=== PATIENT | male | born 1990 | race Caucasian/White ===

== ENCOUNTER 2021-08-28 08:59 | Outpatient (REF) | payer OTHER, SELFPAY ==
--- NOTE | ~2021-08-28 | XR_ITS ---
EXAMINATION: XR SKULL CLINICAL INFORMATION: Scar condition than fibrosis. COMPARISON: None TECHNIQUE: 4 views of the skull were obtained. FINDINGS: The paranasal sinuses are well-aerated. The bony sinus rousseau appear intact. The nasal bone and maxillofacial bones are unremarkable. The mastoid sinuses are well-aerated. Visualized calvarium appears unremarkable. The soft tissues are normal. XR/XR skull <4V IMPRESSION: Unremarkable sinus exam.
[2021-08-28 11:20] LABS: Appearance Urine CLEAR; Color Urine YELLOW; Glucose Urine UA NEG (NEG); Leukocyte Esterase Urine NEG (NEG); Nitrite Urine NEG (NEG); PH 6.5 (5.0-8.0); Specific Gravity - Urine <= 1.005 (1.005-1.025); Urine Blood NEG (NEG); Urine Ketones NEG (NEG); Urine Protein NEG (NEG-TRACE)
[2021-08-28 11:28] LABS: Alanine Aminotransferase 21 U/L (0-40); Albumin Level 4.3 g/dL (3.5-5.0); Alkaline Phosphatase 61 U/L (39-117); Anion Gap 10 (12-20); Aspartate Amino Transferase 21 U/L (5-37); Bilirubin Total 0.9 mg/dL (0.0-1.0); Blood Urea Nitrogen 12 mg/dL (9-16); Calcium 9.2 mg/dL (8.4-10.2); Carbon Dioxide 28 mmol/L (22-29); Chloride 107 mmol/L (96-108); Cholesterol 174 mg/dL; Estimated Glomerular Filt Rate > 60; Glucose Fasting 100 mg/dL (60-99); HDL Cholesterol 62 mg/dL; LDL Cholesterol Calculated 104 mg/dl; Potassium 4.5 mmol/L (3.3-5.1); Sodium 140 mmol/L (135-145); Total Protein 6.7 g/dL (6.5-8.0); Triglycerides 42 mg/dL
[2021-08-28 11:36] LABS: Creatinine Urine 44.29 mg/dL; Microalbumin Urine < 5.0 mg/L
[2021-08-28 11:50] LABS: TSH reflex Free T4 0.55 uIU/mL (0.32-4.0)
[2021-08-30 08:24] LABS: HBsAGNum1 0.23 S/CO (0.00-0.99); Hepatitis B Surface Antigen Negative (Negative)
[2021-08-30 08:28] LABS: HBS Num1 3.34 mIU/mL (0-7.99); HBc Num1 0.04 S/CO (0.00-0.79); HIV AB/AG Nonreactive (Nonreactive); HIV Num 1 0.08 S/CO (0.00-0.99); Hepatitis B Core Antibody Nonreactive (Nonreactive); ~HepC Num1 0.06 S/CO (0.00-0.79); ~Hepatitis B Surface Antibody NONREACTIVE (Nonreactive); ~Hepatitis C Antibody Nonreactive (Nonreactive)
[2021-08-30 08:36] LABS: Syphilis Screen Nonreactive (Nonreactive)
== END 2021-08-28 09:00 | disposition home or self-care (01) ==
LOC: HO.HMGCLDS 08:59
PROVIDERS: Visit Provider Family Medicine
DX: Z00.00 Encounter for general adult medical examination without abnormal findings (principal); L90.5 Scar conditions and fibrosis of skin; I10 Essential (primary) hypertension; Z11.3 Encounter for screening for infections with a predominantly sexual mode of transmission
CPT/HCPCS: 36415; 70250; 80053; 80061; 81003; 82043; 84443; 86704; 86706; 86780; 86803; 87340; 87389

== ENCOUNTER 2022-04-06 08:51 | Outpatient (REF) | payer OTHER, SELFPAY ==
[2022-04-06 11:23] LABS: Appearance Urine Clear; Color Urine Yellow; Glucose Urine UA Negative (Negative); Leukocyte Esterase Urine Small (1+) (Negative); Nitrite Urine Negative (Negative); Specific Gravity - Urine 1.025 (1.005-1.025); UMIC TRIGGER UA YES; Urine Blood Negative (Negative); Urine Ketones 40 mg/dL (Negative); Urine Protein Negative (Neg-Trace)
[2022-04-06 11:34] LABS: Bacteria Urine None Seen (None Seen); Hyaline Casts Urine 0-2 /LPF (0-2); RBC Urine 0-2 /HPF (0-2); Squamous Epithelial Cell Urine 0-2 /HPF (0-2)
[2022-04-06 11:46] LABS: Alanine Aminotransferase 22 U/L (0-40); Albumin Level 4.9 g/dL (3.5-5.0); Alkaline Phosphatase 64 U/L (39-117); Anion Gap 17 (12-20); Aspartate Amino Transferase 24 U/L (5-37); Bilirubin Total 2.6 mg/dL (0.0-1.0); Blood Urea Nitrogen 11 mg/dL (9-16); Calcium 9.9 mg/dL (8.4-10.2); Carbon Dioxide 25 mmol/L (22-29); Chloride 102 mmol/L (96-108); Estimated Glomerular Filt Rate > 60; Glucose Fasting 93 mg/dL (60-99); Potassium 4.6 mmol/L (3.3-5.1); Sodium 139 mmol/L (135-145); Total Protein 7.6 g/dL (6.5-8.0)
[2022-04-06 12:00] LABS: Microalbum/Creatinine Ratio Ur 3.3 ug/mg cr
== END 2022-04-06 08:52 | disposition home or self-care (01) ==
LOC: HO.WFDLDS 08:51
PROVIDERS: Visit Provider Family Medicine
DX: Z00.00 Encounter for general adult medical examination without abnormal findings (principal); I10 Essential (primary) hypertension; R73.01 Impaired fasting glucose
CPT/HCPCS: 36415; 80053; 81001; 82043

== ENCOUNTER 2023-07-05 08:21 | Outpatient (AMB) | payer OTHER, SELFPAY ==
[2023-07-05 08:30] VITALS: BP 102/64; PULSE 86; RESP 13; TEMP 36.5; O2SAT 99; BMI 21.7
--- NOTE | 2023-07-05 08:30 | A.OFFPC_ITS ---
Vital Signs 07/05/23 08:30 Height 6 ft Weight 160 lb 2 oz BMI 21.7 BP 102/64 Blood Pressure Location Rt brachial Position Sitting Respiration 13 Pulse 86 Pulse Source Pulse Oximeter Temp 97.7 F Temp Source Temporal Artery Scan Pulse Oximetry (%) 99 Oxygen Delivery Method Room Air Intake Visit Reasons: Physical exam Intake Note: Patient states that his shoulder has been bothering him lately. Patient would like to quit smoking and get into tele-therapy. [employer] Required: No Accompanied by: Self / Same As Patient Allergies No Known Allergies Allergy (Verified 07/05/23 08:52) Tobacco use date assessed: 07/05/23 Dental Screening Dental Screen Date: 07/05/23 Did you have a dental visit in the last 12 months?: Yes Did you have a dental problem in the last 6 months where you did not have access to dental care?: No Was dental information given to patient?: Patient has dentist HPI HPI Comments History of Present Illness Details 32-year-old male presents for an extende d physical exam His PCP is Dr. Marques. His last office visit was on 04/13/2022. He has not had blood work done in over a year He denies significant past medical history He currently smokes a pack of cigarettes daily and has been smoking for about 16 years. He he will like treatment for smoking cessation. He notes that Bupropion was not effective He notes that he has been more anxious since he purchased his house 3 years ago due stress to afford the house. He also reports seasonal depression during the winter months. He also notes that he was a binge drinking but quit drinking alcohol 3 months ago. No formal anxiety or depression diagnosis. He would like a referral to a therapist He notes that he is sexually active, in a monogamous relationship, and has no concerns for STDs [facility] Medical History (Updated 07/05/23 @ 09:10 by Dang Barrett CNP) No pertinent past medical history Surgical History (Updated 07/05/23 @ 08:38 by Aimee Yuen MA) No pertinent past surgical history Social History Housing: House Patient Tobacco Use Status: Current everyday Tobacco user Tobacco use type: Cigarette Cigarette Packs Per Day: 1 Cigarettes Per Day: 20 Years Smoked: 16 e-Cigarette/Vaping Use: Former Use Second Hand Smoke Exposure: No service: No Current occupational status: employed 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 1. Little interest or pleasure in doing things: several days 2. Feeling down, depressed, or hopeless: more than half the days 3. Trouble falling or staying asleep, or sleeping too much: not at all 4. Feeling tired or having little energy: several days 5. Poor appetite or overeating: several days 6. Feeling bad about yourself - or that you are a failure or have let yourself or your family down: several days 7. Trouble concentrating on things, such as reading the newspaper or watching television: several days 8. Moving or speaking so slowly that other people could have noticed. Or the opposite - being so fidgety or restless that you have been moving around a lot more than usual: several days 9. Thoughts that you would be better off or of hurting yourself in some way: not at all Total score: 8 Depression Screening Interpretation: Positive Depression Screening Follow-up: Community Mental Health Worker F/U Depression Screening Done: Yes 65326 - PHQ-9 Billing: Yes Source: Developed by Drs. Terry Montes, Sammi Phillips, Pablo Mari and colleagues, with an educational lacey from [employer]. Thrive Questionnaire Date Thrive assessed: 07/05/23 I am a: Patient What is your living situation today?: I have a steady place to live Within the past 12 months, did the food you bought not last and you didn't have the money to get more?: Never true Within the past 12 months, did you worry whether your food would run out before you got money to buy more?: Never true Do you have trouble paying for medicines?: No Do you have trouble getting transportation to medical appointments?: No Do you have trouble paying your heating and electricity bill?: No Do you have trouble taking care of your child, family member or friend?: No Do you have trouble with day-to-day activities such as bathing, preparing meals, shopping, managing finances, etc.?: No Are you currently unemployed and looking for a job?: No Are you interested in more education?: No Please select the resources that you would like help with: None Currently or been in a relationship where the following occur: no concerns reported AUDIT C Alcohol Use Questionnaire (AUDIT-C) 1. How often do you have a drink containing alcohol?: Never 3. How often do you have six or more drinks on one occasion?: Never Total Score: 0 JOSE-7 AMB Questionnaire JOSE-7 Date JOSE - 7 assessed: 07/05/23 Feeling nervous, anxious, or on edge: 1 = Several days Not being able to stop or control worryin = Several days Worrying too much about different things: 2 = More than half the days Trouble relaxin = Several days Being so restless that it is hard to sit still: 0 = Not at all Becoming easily annoyed or irritable: 2 = More than half the days Feeling afraid as if something awful might happen: 1 = Several days Total JOSE-7 score (0-4 normal; 5-9 mild; 10-14 moderate; 15-21 severe): 8 Source: Developed by Drs. Terry Montes, Sammi Phillips, Pablo Mari and colleagues, with an educational lacey from [employer]. JOSE-7 Assessment Billing JOSE-7 Assessment Tool: JOSE-7 Assessment 73891 Review of Systems Const Details: Denies chills, Denies fatigue, Denies fever(s), Denies headache(s) and Denies weakness HEENT Denies change in vision, Denies dizziness, Denies headache(s), Denies hearing lo ss, Denies nasal congestion, Denies sinus pain, Denies sinus pressure and Denies sore throat Card Denies chest pain, Denies lightheadedness, Denies dyspnea and Denies other (palpitations) Resp Denies cough, Denies dyspnea and Denies wheezing GI Denies abdominal pain, Denies melena, Denies hematochezia, Denies change in bowel habits, Denies dyspepsia and Denies nausea Denies hematuria and Denies dysuria Musc Denies abnormal gait, Denies myalgias, Denies arthralgias, Denies numbness and Denies tingling Skin/Breast Denies rash, Denies unusual bruising and Denies wounds Neuro Denies abnormal gait, Denies dizziness, Denies headache(s), Denies memory loss, Denies numbness, Denies Sensory deficit (Neuro), Denies tingling and Denies weakness Psych Reports anxiety, Reports depression and Denies memory loss Endo Denies cold intolerance, Denies fatigue, Denies heat intolerance, Denies polydipsia and Denies polyuria Candido/Lymph Denies easy bleeding and Denies easy bruising Aller/Immun Denies wheezing Physical exam (Primary Care) Vital Signs: Last Vital Signs Temp 97.7 F 07/05/23 08:30 Pulse 86 07/05/23 08:30 Resp 13 07/05/23 08:30 BP 102/64 07/05/23 08:30 Pulse Ox 99 07/05/23 08:30 Oxygen Delivery Method Room Air 07/05/23 08:30 BMI result Body Mass Index 21.7 Tobacco/Smoking Status: Tobacco use Status Tobacco use date assessed 07/05/23 07/05/23 08:43 Patient Tobacco Use Status Current everyday Tobacco 07/05/23 08:43 Tobacco use type Cigarette 07/05/23 08:43 e-Cigarette/Vaping Use Former Use 07/05/23 08:43 PHQ-9: PHQ-9 Score PHQ-9: Total score 8 07/05/23 08:46 Depression Screening Interpretation: Positive Depression Screening Follow-up: Community Mental Health Worker F/U Thrive Assessment: Date of Thrive Assessment Date Thrive assessed 07/05/23 07/05/23 08:43 Currently or been in a relationship where the following occur: no concerns repo rted Const Other: General: no acute distress, well developed, alert and awake Nutritional Appearance: well nourished Orientation/consciousness: patient oriented x3 HENMT Head: Yes normocephalic and Yes atraumatic Ears: hearing grossly normal bilaterally and TM's normal bilaterally General nose exam: Normal external nose present and Normal nares present Mouth: Normal oral and palatal mucosa present and moist mucous membranes Teeth and gingiva: dentition normal Throat: Yes oropharynx normal Eyes Pupils: Equal, round and reactive pupils present and Pupil accommodation reflex normal EOM: EOMs intact bilaterally Neck Neck: Yes normal visual inspection, Yes no lymphadenopathy and Yes trachea midline Thyroid: Thyroid normal Carotids: no bruits Lymphatic: no lymphadenopathy noted Chest Chest palpation & inspection: normal inspection of the chest Resp Effort & Inspection: normal respiratory effort Auscultation: clear to auscultation bilaterally Cardio Rate: regular rate Rhythm: regular rhythm Heart sounds: S1 normal heart sound present, S2 normal heart sound present, no gallops, no murmurs and no rubs Bruits: no abdominal aortic bruits and no carotid bruits GI Palpation (GI): No Abdominal aortic bruit present, Soft to palpation, nontender, No hepatosplenomegaly present and No Rebound tenderness present Auscultation: normal bowel sounds General: Yes no CVA tenderness Back/Spine/Pelvis Back: no CVA tenderness Cervical Spine: cervical ROM normal and No Cervical spine tenderness Thoracic/Lumbar Spine: thoraco-lumbar ROM normal, No pain with thoraco-lumbar ROM, No thoracic spinal tenderness and No lumbar spinal tenderness Skin General: warm and dry. Normal skin color. Normal skin turgor Lesions: no lesions Rashes: no rashes Trauma: no lacerations or abrasions Wounds: no wounds Nails: normal Neuro General: patient oriented x3, gait normal and CN's II-XI intact bilaterally Cranial nerves: Yes Equal, round and reactive pupils present Cognition (Neuro): normal cognition Gait exam (Neuro): Normal gait present Motor exam (neuro): 5/5 motor strength present throughout Sensory Exam: No Sensory deficit (Neuro) Deep tendon reflexes (DTR's): Right patellar reflex intensity grade: 2+ and Left patellar reflex intensity grade: 2+ Extrem General: Yes normal to inspection, No edema and No calf tenderness Psych Appearance: grossly normal Affect: normal affect Attitude: cooperative Thought process: Normal thought process present Assessment and Plan Assessment & Plan (1) Adult general medical exam: Code(s): Z00.00 - Encounter for general adult medical examination without abnormal findings Plan: No significant physical restriction or limitations noted Advised to get fasting blood work done and follow-up in 1 month Return sooner with symptoms or concerns Verbalized understanding and agreed with treatment plan (2) Anxiety and depression: Code(s): F41.9 - Anxiety disorder, unspecified; F32.A - Depression, unspecified Plan: 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 He also reports seasonal depression in the winter months PHQ-9 and JOSE-7 scores revealed mild depression and anxiety Deep breathing/relaxation techniques and routine exercise encouraged He met with the community navigator who would refer him to a therapist Follow-up with PCP in 1 month or return sooner with worsening or new symptoms Verbalized understanding and agreed with treatment plan (3) Smoker: Code(s): F17.200 - Nicotine dependence, unspecified, uncomplicated Plan: He reports smoking a pack of cigarettes daily and has been smoking for about 16 years Instructed on the health risks and complications of cigarette smoking Smoking cessation encouraged Nicotine patch ordered. Advised to use as prescribed and to quit or reduce cigarette smoking at treatment onset Follow-up with PCP in 1 month or return sooner with symptoms or concerns Verbalized understanding and agreed with treatment plan (4) Laboratory tests ordered as part of a complete physical exam (CPE): Code(s): Z00.00 - Encounter for general adult medical examination without abnormal findings Plan: Fasting labs ordered as part of a complete physical exam. Advised to fast for at least 10 hours before getting labs drawn. May drink water Verbalized understanding and agreed with treatment plan. Orders: Orders TSH reflex Free T4 Today Z00.00 - Encounter for general adult medical examination without abnormal findings UA CC w/rflx Micro + Cult Today Z00.00 - Encounter for general adult medical examination without abnormal findings Complete Blood Count Auto Diff Today Z00.00 - Encounter for general adult medical examination without abnormal findings Comprehensive [place]. Panel Fast Today Z00.00 - Encounter for general adult medical examination without abnormal findings Lipid Panel Today Z00.00 - Encounter for general adult medical examination without abnormal findings Medications: New nicotine Apply 21 mg patch q.d. x6 weeks, then apply 14 mg patch q.d. x2 weeks, then apply 7 mg patch q.d. x2 weeks. Stop cigarette use at treatment onset. 1 patch transdermal DAILY 70 ea 0RF 10 weeks Coding Level of Care Code Est Pt Prev Care 18-39y([id number]) Diagnoses Adult general medical exam Z00.00 Anxiety and depression F41.9; F32.A Smoker F17.200 Laboratory tests ordered as part of a complete physical exam (CPE) Z00.00 Additional Codes JOSE-7 Assessment Billing - JOSE-7 Assessment Tool: JOSE-7 Assessment [id number] ([id number])
== END 2023-07-05 09:13 | disposition home or self-care (01) ==
PROVIDERS: PCP Family Medicine; Visit Provider Nurse Practitioner Family
DX: Z00.00 Encounter for general adult medical examination without abnormal findings (principal); F41.9 Anxiety disorder, unspecified; F32.A Depression, unspecified; F17.210 Nicotine dependence, cigarettes, uncomplicated
CPT/HCPCS: 96127; 99395

== ENCOUNTER 2023-07-15 07:15 | Outpatient (REF) | payer OTHER, SELFPAY | END 2023-07-15 07:16 | disposition home or self-care (01) | LOC: HO.LAB 07:15 | PROVIDERS: PCP Family Medicine; Visit Provider Nurse Practitioner Family | DX: Z00.00 Encounter for general adult medical examination without abnormal findings (principal) | CPT/HCPCS: 36415; 80053; 80061; 81003; 84443; 85025 ==

== ENCOUNTER 2023-08-09 08:25 | Outpatient (AMB) | payer OTHER, SELFPAY ==
[2023-08-09 08:39] VITALS: BP 112/62; PULSE 78; O2SAT 97; BMI 21.0
--- NOTE | 2023-08-09 08:39 | MHC.PC.OV ---
Vital Signs 08/09/23 08:39 Height 6 ft Weight 155 lb BMI 21.0 BP 112/62 Blood Pressure Location Lt brachial Position Sitting Pulse 78 Pulse Source Pulse Oximeter Pulse Oximetry (%) 97 Oxygen Delivery Method Room Air Intake Visit Reasons: anxiety, depression,smoking cessation,labs Intake Note: Patient is here for follow up on labs, depression, anxiety, quitting smoking. Allergies No Known Allergies Allergy (Verified 08/09/23 08:41) Tobacco use date assessed: 08/09/23 HPI anxiety, depression,smoking cessation,labs HPI Details 32 y/o male presents to f/u anxiety/depression, smoking cessation and labs. Labs were drawn 07/15/23. Reviewed labs with pt. Elevated fasting glucose of 105. Elevated ALT of 55. Triglycerides 57. TC 207. LDL 130. HDL 66. Pt notes anxiety/depression has improved due to improved financial situations. 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 A1c today 08/09/23 5.3%. Pt has complaints of L shoulder pain. 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 1. Little interest or pleasure in doing things: not at all 2. Feeling down, depressed, or hopeless: not at all 3. Trouble falling or staying asleep, or sleeping too much: several days 4. Feeling tired or having little energy: several days 5. Poor appetite or overeating: several days 6. Feeling bad about yourself - or that you are a failure or have let yourself or your family down: not at all 7. Trouble concentrating on things, such as reading the newspaper or watching television: several days 8. Moving or speaking so slowly that other people could have noticed. Or the opposite - being so fidgety or restless that you have been moving around a lot more than usual: several days 9. Thoughts that you would be better off or of hurting yourself in some way: not at all Total score: 5 Depression Screening Interpretation: Negative Depression Screening Done: Yes 20572 - PHQ-9 Billing: Yes Source: Developed by Drs. Terry Montes, Sammi Phillips, Pablo Mari and colleagues, with an educational lacey from [employer]. Thrive Questionnaire Date Thrive assessed: 07/05/23 JOSE-7 AMB Questionnaire JOSE-7 Date JOSE - 7 assessed: 08/09/23 Feeling nervous, anxious, or on edge: 1 = Several days Not being able to stop or control worryin = Not at all Worrying too much about different things: 1 = Several days Trouble relaxin = Several days Being so restless that it is hard to sit still: 1 = Several days Becoming easily annoyed or irritable: 1 = Several days Feeling afraid as if something awful might happen: 0 = Not at all Total JOSE-7 score (0-4 normal; 5-9 mild; 10-14 moderate; 15-21 severe): 5 Source: Developed by Drs. Terry Montes, Sammi Phillips, Pablo Mrai and colleagues, with an educational lacey from [employer]. JOSE-7 Assessment Billing JOSE-7 Assessment Tool: JOSE-7 Assessment 21002 Physical exam (Primary Care) Vital Signs: Last Vital Signs Pulse 78 08/09/23 08:39 BP 112/62 08/09/23 08:39 Pulse Ox 97 08/09/23 08:39 Oxygen Delivery Method Room Air 08/09/23 08:39 BMI result Body Mass Index 21.0 Tobacco/Smoking Status: Tobacco use Status Tobacco use date assessed 08/09/23 08/09/23 08:41 Patient Tobacco Use Status Current everyday Tobacco 08/09/23 08:41 Tobacco use type Cigarette 08/09/23 08:41 e-Cigarette/Vaping Use Former Use 08/09/23 08:41 PHQ-9: PHQ-9 Score PHQ-9: Total score 5 08/09/23 08:55 Depression Screening Interpretation: Negative Thrive Assessment: Date of Thrive Assessment Date Thrive assessed 07/05/23 08/09/23 08:41 Extrem Other: L shoulder pain with range of motion, internal rotation and abduction Results AMB Hemoglobin A1c AMB Hemoglobin A1c 5.3 % Last Edit by Ashely Baldwin CMA on 08/09/23 09:19 Assessment and Plan Assessment & Plan (1) Anxiety and depression: Code(s): F41.9 - Anxiety disorder, unspecified; F32.A - Depression, unspecified Plan: Patient?was?having?some?difficulties?at?home?both?financially?and?in?his?relationship?with?his?. Finances?are?improved?and?his?mood?is?improved?as?well.??Relationship?is?a?little?better?but?he?would?like?to?have?therapist?for?himself. Will?ask?the?nurse?navigator?to?connect?him?with?a?therapist (2) Smoker: Code(s): F17.200 - Nicotine dependence, unspecified, uncomplicated Plan: Patient?is?working?on?quitting?smoking. 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 Continue?using?nicotine?patches?and?try?to?place?smoking?with?other?habits?that?are?less?detrimental. He?is?looking?forward?to?spring?time?when?he?is?no?longer?plowinging?streets. Will?continue?to?encourage?cessation (3) Elevated fasting glucose: Code(s): R73.01 - Impaired fasting glucose Plan: A1c?5.3%?is?still?in?normal?range?though?patient?has?had?a?couple?of?instances?of?elevated?fasting?blood?sugars. Likely?some?insulin?resistance Encouraged?a?diet?lower?in?starches?and?sugars (4) Elevated cholesterol: Code(s): E78.00 - Pure hypercholesterolemia, unspecified Plan: Mildly?elevated?LDL?cholesterol?though?his?HDL?ratios?are?good No?indication?for?medicine?at?this?time?but?I?did?encourage?a?diet?lower?in?saturated?fats?and?cholesterol (5) Elevated ALT measurement: Code(s): R74.01 - Elevation of levels of liver transaminase levels Plan: Mildly?elevated?ALT.??Patient?is?not?overweight?but?he?does?note?that?he?sometimes?has?episodes?of?excessive?drinking. He?has?stopped?drinking?altogether.??Encouraged?ongoing?cessation Will?recheck?liver?enzymes?and?if?still?elevated?or?higher,?will?check?an?ultrasound. (6) Shoulder pain: Code(s): M25.519 - Pain in unspecified shoulder Plan: Left?shoulder?pain Will?check?x-ray Start?physical?therapy Orders: Orders PT Evaluation and Treatment Today M25.519 - Pain in unspecified shoulder Comprehensive [place]. Panel Fast Today R74.01 - Elevation of levels of liver transaminase levels, Z00.00 - Encounter for general adult medical examination without abnormal findings Lipid Panel Today E78.00 - Pure hypercholesterolemia, unspecified, Z00.00 - Encounter for general adult medical examination without abnormal findings AMB Hemoglobin A1c Today Z13.9 - Encounter for screening, unspecified XR shoulder LT min 2V Today M25.519 - Pain in unspecified shoulder Referrals Nurse Navigator Referral F32.A - Depression, unspecified, F41.9 - Anxiety disorder, unspecified Coding Level of Care Code Est Pt Level 4 (40988) Diagnoses Anxiety and depression F41.9; F32.A Smoker F17.200 Elevated fasting glucose R73.01 Elevated cholesterol E78.00 Elevated ALT measurement R74.01 Shoulder pain M25.519 Additional Codes JOSE-7 Assessment Billing - JOSE-7 Assessment Tool: JOSE-7 Assessment [id number] ([id number])
== END 2023-08-09 09:20 | disposition home or self-care (01) ==
PROVIDERS: PCP Family Medicine; Visit Provider Family Medicine
DX: R73.01 Impaired fasting glucose (principal); F41.9 Anxiety disorder, unspecified; F32.A Depression, unspecified; F17.210 Nicotine dependence, cigarettes, uncomplicated; E78.00 Pure hypercholesterolemia, unspecified; R74.01 Elevation of levels of liver transaminase levels; M25.512 Pain in left shoulder
CPT/HCPCS: 83036; 99214

== ENCOUNTER 2023-09-23 07:29 | Outpatient (REF) | payer OTHER, SELFPAY ==
[2023-09-23 12:34] LABS: Appearance Urine Clear; Color Urine Yellow; Glucose Urine UA Negative (Negative); Leukocyte Esterase Urine Negative (Negative); Nitrite Urine Negative (Negative); PH 6.5 (5.0-9.0); Urine Blood Negative (Negative); Urine Ketones Negative (Negative); Urine Protein Negative (Neg-Trace)
[2023-09-23 12:46] LABS: Alanine Aminotransferase 21 U/L (0-40); Albumin Level 4.4 g/dL (3.5-5.0); Alkaline Phosphatase 69 U/L (39-117); Anion Gap 12 (12-20); Aspartate Amino Transferase 21 U/L (5-37); Bilirubin Total 0.8 mg/dL (0.0-1.0); Blood Urea Nitrogen 11 mg/dL (9-16); Calcium 9.7 mg/dL (8.4-10.2); Carbon Dioxide 28 mmol/L (22-29); Chloride 106 mmol/L (96-108); Cholesterol 197 mg/dL (<200); Estimated Glomerular Filt Rate > 60; Glucose Fasting 94 mg/dL (60-99); HDL Cholesterol 66 mg/dL (>40); LDL Cholesterol Calculated 120 mg/dL (<100); Potassium 4.8 mmol/L (3.3-5.1); Sodium 141 mmol/L (135-145); TSH reflex Free T4 0.84 uIU/mL (0.32-4.0); Total Protein 7.4 g/dL (6.5-8.0); Triglycerides 58 mg/dL (<150)
== END 2023-09-23 07:30 | disposition home or self-care (01) ==
LOC: HO.HMGCLDS 07:29
PROVIDERS: PCP Family Medicine; Visit Provider Family Medicine
DX: Z00.00 Encounter for general adult medical examination without abnormal findings (principal); Z13.6 Encounter for screening for cardiovascular disorders
CPT/HCPCS: 36415; 80053; 80061; 81003; 84443

== ENCOUNTER 2023-09-26 15:35 | Outpatient (AMB) | payer OTHER, SELFPAY ==
[2023-09-26 15:45] VITALS: BP 120/62; PULSE 102; O2SAT 97; BMI 20.7
--- NOTE | 2023-09-26 15:45 | MHC.PC.OV ---
Vital Signs 09/26/23 15:45 Height 6 ft Weight 153 lb BMI 20.7 BP 120/62 Blood Pressure Location Lt brachial Position Sitting Pulse 102 H Pulse Source Pulse Oximeter Pulse Oximetry (%) 97 Oxygen Delivery Method Room Air Intake Visit Reasons: Follow-up?lipids?and?elevated?liver?enzymes Intake Note: Patient is here to follow up on blood work for liver enzymes and lipids. Allergies No Known Allergies Allergy (Verified 09/26/23 15:46) Tobacco use date assessed: 09/26/23 Dental Screening Dental Screen Date: 09/26/23 Did you have a dental visit in the last 12 months?: Yes Did you have a dental problem in the last 6 months where you did not have access to dental care?: No Was dental information given to patient?: Patient has dentist HPI Follow-up?lipids?and?elevated?liver?enzymes HPI Details 32 y/o male presents to f/u lipids and elevated liver enzymes. Labs were drawn 09/23/23. Reviewed labs with pt. Triglycerides 58. TC 197. LDL 120. HDL 66. 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 Terry Montes, Sammi Phillips, Pablo Mari and colleagues, with an educational lacey from [employer]. Physical exam (Primary Care) Vital Signs: Last Vital Signs Pulse 102 H 09/26/23 15:45 BP 120/62 09/26/23 15:45 Pulse Ox 97 09/26/23 15:45 Oxygen Delivery Method Room Air 09/26/23 15:45 BMI result Body Mass Index 20.7 Tobacco/Smoking Status: Tobacco use Status Tobacco use date assessed 09/26/23 09/26/23 15:47 Patient Tobacco Use Status Current everyday Tobacco 09/26/23 15:47 Tobacco use type Cigarette 09/26/23 15:47 e-Cigarette/Vaping Use Former Use 09/26/23 15:47 Thrive Assessment: Date of Thrive Assessment Date Thrive assessed 07/05/23 09/26/23 15:47 Assessment and Plan Assessment & Plan (1) Elevated cholesterol: Code(s): E78.00 - Pure hypercholesterolemia, unspecified Plan: Lipids?all?in?normal?range HDL?ratios?are?ideal (2) Elevated ALT measurement: Code(s): R74.01 - Elevation of levels of liver transaminase levels Plan: Mildly?elevated?ALT?has?resolved Alcohol?in?moderation.??Hydrate?well (3) Shoulder pain: Code(s): M25.519 - Pain in unspecified shoulder Plan: Left?shoulder?pain?has?resolved Orders: Orders Comprehensive [place]. Panel Fast Today Z00.00 - Encounter for general adult medical examination without abnormal findings Lipid Panel Today Z00.00 - Encounter for general adult medical examination without abnormal findings Microalbumin, Random (w Creat) Today I10 - Essential (primary) hypertension TSH reflex Free T4 Today Z00.00 - Encounter for general adult medical examination without abnormal findings UA and rflx microscopic Today Z00.00 - Encounter for general adult medical examination without abnormal findings Coding Level of Care Code Est Pt Level 3 (99600) Diagnoses Elevated cholesterol E78.00 Elevated ALT measurement R74.01 Shoulder pain M25.519
== END 2023-09-26 16:22 | disposition home or self-care (01) ==
PROVIDERS: PCP Family Medicine; Visit Provider Family Medicine
DX: E78.00 Pure hypercholesterolemia, unspecified (principal); R74.01 Elevation of levels of liver transaminase levels; M25.519 Pain in unspecified shoulder
CPT/HCPCS: 99213

== ENCOUNTER 2023-11-18 09:11 | Outpatient (AMB) | payer OTHER, SELFPAY ==
[2023-11-18 09:27] VITALS: BP 112/68; PULSE 98; TEMP 36.8; O2SAT 97; BMI 19.9
--- NOTE | 2023-11-18 09:27 | AM.OFFWIN_ITS ---
Intake Vital Signs 11/18/23 09:27 Height 6 ft Weight 147 lb BMI 19.9 BP 112/68 Blood Pressure Location Rt brachial Position Sitting Pulse 98 Pulse Source Pulse Oximeter Temp 98.2 F Temp Source Oral Pulse Oximetry (%) 97 Oxygen Delivery Method Room Air Intake Visit Reasons: EST/sinus pressure (lobby masked) Intake Note: Pt is here today c/o sinus pressure x 2weeks Patient Tobacco Use Status: Current everyday Tobacco user Allergies No Known Allergies Allergy (Verified 11/18/23 09:38) Medication List - Last Reconciled 11[facility]18/23 [facility] No Known [facility] Meds [facility] Medical History No pertinent past medical history Surgical History No pertinent past surgical history Social History Housing: House Patient Tobacco Use Status: Current everyday Tobacco user Tobacco use type: Cigarette Cigarette Packs Per Day: 1 Cigarettes Per Day: 20 Years Smoked: 16 e-Cigarette/Vaping Use: Former Use Second Hand Smoke Exposure: No service: No Current occupational status: employed 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 Current occupational exposures/hazards: No Cognitive needs: No Hearing needs: No Vision needs: No Review of Systems Const All systems reviewed & are unremarkable except as noted in HPI and below Physical Exam Vital Signs: Last Vital Signs Temp 98.2 F 11/18/23 09:27 Pulse 98 11/18/23 09:27 BP 112/68 11/18/23 09:27 Pulse Ox 97 11/18/23 09:27 Oxygen Delivery Method Room Air 11/18/23 09:27 BMI result Body Mass Index 19.9 Const Other: Awake alert NAD Sclera and conjunctiva clear bilat TM intact bilat with some congestion Nares with thick mucoid drainage bilat, turbinates pale and edematous, maxillary sinus tenderness bilat MMM, pharynx WNL RRR LS CTAB Assessment & Plan Assessment & Plan (1) Acute bacterial sinusitis: Code(s): J01.90 - Acute sinusitis, unspecified; B96.89 - Other specified bacterial agents as the cause of diseases classified elsewhere Plan: . Medications: New amoxicillin-pot clavulanate 875-125 mg 1 tab PO BID 7 days 14 tabs 0RF Patient Instructions: What Is It? Sinuses are air-filled spaces behind the bones of the upper face: between the eyes and behind the forehead, nose and cheeks. The lining of the sinuses are made up of cells with tiny hairs on their surfaces called cilia. Oth er cells in the lining produce mucus. The mucus traps germs and pollutants and the cilia push the mucus out through narrow sinus openings into the nose. When the sinuses become inflamed or infected, the mucus thickens and clogs the openings to one or more sinuses. Fluid builds up inside the sinuses causing increased pressure. Also bacteria can become trapped, multiply and infect the lining. This is sinusitis. Prevention There are some measures you can take to decrease your risk of developing sinusitis. If you smoke cigarettes, you should quit. The smoke can irritate nasal passageways and increase the likelihood of infection. Nasal allergies can trigger sinus infections, too. By identifying the allergen (the substance causing the allergic reaction) and avoiding it, you can help prevent sinusitis. If you have congestion from a cold or allergies, the following may help to reduce the risk of developing sinusitis: Drink lots of water. This thins nasal secretions and keeps mucous membranes moist. Use steam to soothe nasal passages. Breathe deeply while standing in a hot shower, or inhale the vapor from a basin filled with hot water while holding a towel over your head. Avoid blowing your nose with great force, which can push bacteria into the sinuses. Some doctors advise periodic home nasal washings to clear secretions. This may help prevent, and also treat, sinus infections. Treatment Many sinus infections improve without treatment. However, several medications may speed recovery and reduce the chance that an infection will become chronic. Decongestants - Congestion often triggers sinus infections, and decongestants can open the sinuses and allow them to drain. Several are available: Pseudoephedrine (Sudafed) is available without prescription, alone or in combination with other medications in multi-symptom cold and sinus remedies. Pseudoephedrine can cause insomnia, racing pulse and jitteriness. Do not use if you have high blood pressure or a heart condition. Phenylephrine (such as Sudafed PE) is an alternative dltf-ioh-powxnxc oral decongestant. If you take products containing oral phenylephrine, check with the pharmacist to be certain there is no interaction with other medications you take. Oxymetazoline (Afrin Dristan and others) and phenylephrine (Donta-Synephrine and others) are found in nasal sprays. They are effective and may be less likely to cause the side effects seen with pseudoephedrine. However, using a nasal decongestant for more than three days can cause worse symptoms when you stop the medication. This is called the rebound effect. Antihistamines - These medications help to relieve the symptoms of nasal allergies that lead to inflammation and infections. However, some doctors advise against using antihistamines during a sinus infe ction because they can cause excessive drying and slow the drainage process. Zyoy-eoa-itjpgmo antihistamines include diphenhydramine (Benadryl and others), chlorpheniramine (Chlor-Trimeton and others) and loratadine (Claritin). Fexofenadine (Allison) and cetrizine (Zyrtec) are available by prescription. Nasal steroids - Anti-inflammatory sprays such as mometasone (Nasonex) and fluticasone (Flonase), both available by prescription, reduce swelling of nasal membranes. Like antihistamines, nasal steroids can be most useful for those who have nasal allergies. Nasal steroids tend to produce less drying than antihistamines. Unlike nasal decongestants, nasal steroids can be used for prolonged periods. Saline nasal sprays - These salt-water sprays are safe to use and can provide some relief by adding moisture to the nasal passages, thinning mucus secretions and helping to flush out any bacteria that may be present. Pain relievers - Acetaminophen (Tylenol), ibuprofen (Advil, Motrin and others) or naproxen (Aleve) can be taken sinus pain. Antibiotics - Your doctor may prescribe an antibiotic if he or she suspects that a bacterial infection is causing your sinusitis. If you start taking an antibiotic, complete the entire course so that the infection is completely killed off. Not all cases of sinusitis require antibiotic treatment: Talk with your doctor about whether an antibiotic is right for you. Keep in mind that antibiotics can cause side effects, such as allergic reactions, rash and diarrhea. In addition, overusing antibiotics eventually leads to the spread of bacteria that no longer can be killed by the most commonly prescribed antibiotics. When To Call A Professional Contact a doctor if you experience facial pain along with a headache and fever, cold symptoms that last longer than seven to 10 days, or persistent green discharge from the nose. If your symptoms don't improve within a week of beginning treatment, call your doctor. Call sooner if symptoms are getting worse. If you have repeated bouts of acute sinusitis, you may have allergies or another treatable cause of sinus congestion. Ask your doctor for advice. Coding Level of Care Code Est Pt Level 3 (37523) Diagnoses Acute bacterial sinusitis J01.90; B96.89
== END 2023-11-18 10:00 | disposition home or self-care (01) ==
PROVIDERS: PCP Family Medicine; Visit Provider Nurse Practitioner Family
DX: J01.90 Acute sinusitis, unspecified (principal); B96.89 Other specified bacterial agents as the cause of diseases classified elsewhere
CPT/HCPCS: 99051; 99213

== ENCOUNTER 2023-12-02 09:13 | Outpatient (AMB) | payer OTHER, SELFPAY ==
[2023-12-02 10:24] VITALS: BP 112/60; PULSE 79; TEMP 36.6; O2SAT 97; BMI 20.5
--- NOTE | 2023-12-02 10:24 | MHC.OFFWIV ---
Intake Vital Signs 12/02/23 10:24 Height 6 ft Weight 151 lb BMI 20.5 BP 112/60 Blood Pressure Location Lt brachial Position Sitting Pulse 79 Pulse Source Pulse Oximeter Temp 97.9 F Temp Source Oral Pulse Oximetry (%) 97 Oxygen Delivery Method Room Air Intake Visit Reasons: EP ?sinus infection Intake Note: Patient is here with sinus infection symptoms. Patient Tobacco Use Status: Current everyday Tobacco user Allergies No Known Allergies Allergy (Verified 12/02/23 10:26) Do you need a note to return to daycare/school/sports/work: No HPI EP ?sinus infection HPI Details Patient is a 33-year-old male comes to the walk-in clinic complaining of persistent sinusitis symptoms. He was diagnosed with acute bacterial sinusitis 2 weeks ago and was written for a course of Augmentin, which he reports completing. He states that he continues to have pressure to his cheek areas, mucoid production from his nose, and productive cough. No report of fever or chills, jaw pain, difficulty chewing, anorexia, nausea vomiting or diarrhea, dizziness or headache, weakness, malaise or myalgias, fast heart rate, chest pain or shortness of breath. Reviewed past medical history, and he continues to smoke cigarettes. 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 Current occupational exposures/hazards: No Cognitive needs: No Hearing needs: No Vision needs: No Review of Systems Const All systems reviewed & are unremarkable except as noted in HPI and below Physical Exam Vital Signs: Last Vital Signs Temp 97.9 F 12/02/23 10:24 Pulse 79 12/02/23 10:24 BP 112/60 12/02/23 10:24 Pulse Ox 97 12/02/23 10:24 Oxygen Delivery Method Room Air 12/02/23 10:24 BMI result Body Mass Index 20.5 Const General: cooperative, no acute distress, alert, awake, Physically active, ill appearing (Mildly), tired appearing and well groomed; No anxious, diaphoretic, intoxicated appearing or poor hygiene Nutritional Appearance: average body habitus Orientation/consciousness: patient oriented x3 Limitations: no limitations HEENT Head: Yes normal to inspection, Yes normocephalic and Yes atraumatic Ears: hearing grossly normal bilaterally, external ears normal, TM's normal bilaterally and EAC's normal General nose exam: Normal external nose present, Normal nares present, Abnormal mucous membranes and turbinates present and Nasal discharge present Face and sinus: Yes face symmetric, No erythema, No edema, No fluctuance and Yes sinus tenderness Mouth: Normal oral and palatal mucosa present, lip normal and tongue normal Throat: Yes posterior oropharynx normal, No peritonsillar mass, No postnasal drainage, No uvular edema and No cobblestoning Eyes General: appearance normal, both eyes and all related structures Neck Neck: Yes normal visual inspection, Yes no lymphadenopathy, Yes trachea midline, Yes supple and No anterior neck swelling Resp Effort & Inspection: normal respiratory effort Skin Other: Good color, warm and dry Neuro General: patient oriented x3 Psych Appearance: grossly normal Mental Status: mental status grossly normal Speech and movement: Normal speech and movement present Affect: normal affect Attitude: cooperative Thought process: Normal thought process present Insight: Good insight present (Psych) Judgement: Good judgement present (Psych) Assessment & Plan Assessment & Plan (1) Chronic sinusitis: Code(s): J32.9 - Chronic sinusitis, unspecified Qualifiers: Sinusitis location: ethmoidal Qualified Code(s): J32.2 - Chronic ethmoidal sinusitis Plan: Patient is a 33-year-old male with no underlying pertinent past medical history and comes to the walk-in clinic now with about a month sinus pressure and congestion symptoms after completing a course of Augmentin a few days ago. Pending flu COVID and RSV results, just in case this is than exacerbated condition due to new virus. I will write him for a course of prednisone which should help with the inflammation and pressure, and we will start him on azithromycin. If symptoms persist, he should follow up to be considered for CT scan at that point. He knows to go to emergency department for worrisome symptoms. Orders: Orders SARS-CoV2/FLU/RSV 12/02/23 R09.89 - Other specified symptoms and signs involving the circulatory and respiratory systems Medications: New azithromycin take 500 mg today (day 1), then 250 mg for 4 days (days 2-5) PO 6 tabs 0RF prednisone 40 mg (2 x 20 mg) PO DAILY 10 tabs 0RF 5 days Coding Level of Care Code Est Pt Level 4 (70260) Diagnoses Chronic ethmoidal sinusitis J32.2 Sinusitis location: ethmoidal
== END 2023-12-02 11:09 | disposition home or self-care (01) ==
PROVIDERS: PCP Family Medicine; Visit Provider Physician Assistant Medical
DX: J32.2 Chronic ethmoidal sinusitis (principal)
CPT/HCPCS: 99051; 99214

== ENCOUNTER 2023-12-02 11:32 | Outpatient (REF) | payer OTHER, SELFPAY ==
[2023-12-02 15:23] LABS: Influenza A PCR NEGATIVE (Negative); Influenza B PCR NEGATIVE (Negative); Resp Syncy Virus RNA Qual PCR NEGATIVE (Negative); SARS COV2 PCR INHOUSE NEGATIVE (Negative)
== END 2023-12-02 11:33 | disposition home or self-care (01) ==
LOC: HO.LAB 11:32
PROVIDERS: Visit Provider Physician Assistant Medical
DX: R09.89 Other specified symptoms and signs involving the circulatory and respiratory systems (principal); J06.9 Acute upper respiratory infection, unspecified
CPT/HCPCS: 0241U

== ENCOUNTER 2024-01-17 15:42 | Outpatient (AMB) | payer OTHER, SELFPAY ==
--- NOTE | 2024-01-17 15:44 | A.OFFPC_ITS ---
Vital Signs 01/17/24 15:48 Height 6 ft Weight 154 lb BMI 20.9 BP 110/52 L Blood Pressure Location Lt brachial Position Sitting Pulse 89 Pulse Source Pulse Oximeter Pulse Oximetry (%) 98 Oxygen Delivery Method Room Air Intake Visit Reasons: Smoking Quit Intake Note: Help quitting smoking Clinical Trial Coordinator Required: No Allergies No Known Allergies Allergy (Verified 01/17/24 15:47) Medication List - Last Reconciled 01/17/24 by Kaur Andujar PA-C varenicline (Chantix Starting Month Box) PO PER PKG DIR Tobacco use date assessed: 09/26/23 Dental Screening Dental Screen Date: 09/26/23 HPI Smoking Quit HPI Details Pt is a 33 y/o male who presents today to discuss smoking cessation. He states that he has been smoking for about 16 years on and off. He is tried Wellbutrin, patches, gum, hypnosis and Chantix. He states that the Chantix was the most effective and he would like to go back on this. He is currently smoking about a pack a day. He does have a history of anxiety and depression but states it is very well-controlled and not currently active. 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 Terry Montes, Sammi Phillips, Pablo Mari and colleagues, with an educational lacey from [employer]. Physical exam (Primary Care) Vital Signs: Last Vital Signs Pulse 89 01/17/24 15:48 BP 110/52 L 01/17/24 15:48 Pulse Ox 98 01/17/24 15:48 Oxygen Delivery Method Room Air 01/17/24 15:48 BMI result Body Mass Index 20.9 Tobacco/Smoking Status: Tobacco use Status Tobacco use date assessed 09/26/23 01/17/24 15:45 Patient Tobacco Use Status Current everyday Tobacco 01/17/24 15:45 Tobacco use type Cigarette 01/17/24 15:45 e-Cigarette/Vaping Use Former Use 01/17/24 15:45 Thrive Assessment: Date of Thrive Assessment Date Thrive assessed 07/05/23 01/17/24 15:45 HENMT Ears: hearing grossly normal bilaterally Neck Thyroid: Thyroid normal Lymphatic: no lymphadenopathy noted Resp Auscultation: clear to auscultation bilaterally Cardio Rate: regular rate Rhythm: regular rhythm Heart sounds: S1 normal heart sound present and S2 normal heart sound present Skin General skin exam: no rashes or lesions noted Assessment and Plan Assessment & Plan (1) Smoker: Code(s): F17.200 - Nicotine dependence, unspecified, uncomplicated Plan: We will start him on Chantix. We discussed risks and benefits and adverse effects of this medication including increased risk of anxiety, depression and abnormal dreams. He will let me know if he develops any adverse effects. He will contact me for continuation package. He will follow up if anything changes. Patient understands and agrees with the plan. Medications: New varenicline (Chantix Starting Month Box) PO PER PKG DIR 53 ea 0RF Coding Level of Care Code Est Pt Level 3 (68832) Diagnoses Smoker F17.200
[2024-01-17 15:48] VITALS: BP 110/52; PULSE 89; O2SAT 98; BMI 20.9
== END 2024-01-17 16:57 | disposition home or self-care (01) ==
PROVIDERS: PCP Family Medicine; Visit Provider Physician Assistant
DX: F17.200 Nicotine dependence, unspecified, uncomplicated (principal)
CPT/HCPCS: 99213

== ENCOUNTER 2024-03-05 11:42 | Outpatient (AMB) | payer OTHER, SELFPAY ==
--- NOTE | 2024-03-05 11:55 | A.OFFPC_ITS ---
Vital Signs 03/05/24 11:58 Height 6 ft Weight 161 lb 6 oz BMI 21.9 BP 108/59 L Blood Pressure Location Rt brachial Position Sitting Respiration 16 Pulse 98 Pulse Source Pulse Oximeter Temp 96.9 F Temp Source Tympanic Pulse Oximetry (%) 96 Oxygen Delivery Method Room Air Intake Visit Reasons: medications and possible anxiety meds needs Intake Note: f/u for anxiety and adha meds Allergies No Known Allergies Allergy (Verified 03/05/24 11:55) Medication List - Last Reconciled 03/05/24 by Paolo Marques MD No Known Home Meds Tobacco use date assessed: 09/26/23 Dental Screening Dental Screen Date: 09/26/23 HPI medications and possible anxiety meds needs HPI Details 33 y/o male presents today with complain ts of anxiety. Also has ongoing complaints of difficulty concentrating. Prior records has not showed any diagnosis of ADHD. Does not have a therapist but he has an appt. for his first visit in a couple months. Not on any meds for anxiety. HPI Comments History of Present Illness Details Documentation assistance for Paolo Marques MD, was provided by Niraj Villegas,? Tax[employer] on 03/05/2024 at 12:23 PM EST. I, Dr. Marques, have read, observed, and verified documentation. 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 Terry Montes, Sammi Phillips, Pablo Mari and colleagues, with an educational lacey from [employer]. Review of Systems Const Denies chills, Denies fatigue, Denies fever(s), Denies headache(s) and Denies weakness ENT Denies dizziness and Denies headache(s) Card Denies dyspnea Resp Denies cough, Denies dyspnea, Denies wheezing and Denies other (shortness of breath) Musc Denies numbness and Denies tingling Neuro Denies dizziness, Denies headache(s), Denies numbness, Denies tingling and De nies weakness Psych Reports anxiety and Denies depression Endo Denies fatigue Aller/Immun Denies wheezing Physical exam (Primary Care) Vital Signs: Last Vital Signs Temp 96.9 F 03/05/24 11:58 Pulse 98 03/05/24 11:58 Resp 16 03/05/24 11:58 BP 108/59 L 03/05/24 11:58 Pulse Ox 96 03/05/24 11:58 Oxygen Delivery Method Room Air 03/05/24 11:58 BMI result Body Mass Index 21.9 Tobacco/Smoking Status: Tobacco use Status Tobacco use date assessed 09/26/23 03/05/24 11:57 Patient Tobacco Use Status Current everyday Tobacco 03/05/24 11:57 Tobacco use type Cigarette 03/05/24 11:57 e-Cigarette/Vaping Use Former Use 03/05/24 11:57 Thrive Assessment: Date of Thrive Assessment Date Thrive assessed 07/05/23 03/05/24 11:57 Const General: well developed; No acute distress Nutritional Appearance: well nourished Orientation/consciousness: patient oriented x3 [facility] Head: Yes normocephalic and Yes atraumatic Eyes General: appearance normal, both eyes and all related structures Pupils: Equal, round and reactive pupils present EOM: EOMs intact bilaterally Resp Effort & Inspection: normal respiratory effort Neuro General: patient oriented x3 and gait normal Cranial nerves: Yes Equal, round and reactive pupils present Psych Affect: normal affect Assessment and Plan Assessment & Plan (1) Anxiety: Code(s): F41.9 - Anxiety disorder, unspecified Plan: He?can?trial?hydroxyzine?up?to?twice?a?day?as?needed?for?anxiety He?has?an?upcoming?appointment?with?a?therapist Will?follow-up?after?appointment?with?neuropsychiatry - see?below (2) Difficulty concentrating: Code(s): R41.840 - Attention and concentration deficit Plan: Ongoing?difficulty?with?concentration. Patient's?prior?notes?did?not?support?a?diagnosis?of?ADHD?so?I?am?referring?him? to?neuropsychiatry?to?rule?out?ADHD?or?make?recommendations?if?ruled?in. Orders: Referrals Neuropsychiatry Referral F41.9 - Anxiety disorder, unspecified, R41.840 - Attention and concentration deficit Medications: New hydroxyzine HCl 50 mg PO BID 30 days PRN 60 tabs 0RF itching Coding Level of Care Code Est Pt Level 3 (26250) Diagnoses Anxiety F41.9 Difficulty concentrating R41.840
[2024-03-05 11:58] VITALS: BP 108/59; PULSE 98; RESP 16; TEMP 36.1; O2SAT 96; BMI 21.9
== END 2024-03-05 14:00 | disposition home or self-care (01) ==
PROVIDERS: PCP Family Medicine; Visit Provider Family Medicine
DX: F41.9 Anxiety disorder, unspecified (principal); R41.840 Attention and concentration deficit
CPT/HCPCS: 99213

== ENCOUNTER 2024-11-05 08:08 | Outpatient (AMB) | payer OTHER, SELFPAY ==
--- NOTE | 2024-11-05 08:40 | AM.OFFWIN_ITS ---
Intake Vital Signs 11/05/24 08:41 Weight 157 lb BP 122/76 Blood Pressure Location Rt brachial Position Sitting Pulse 68 Pulse Source Pulse Oximeter Pulse Oximetry (%) 98 Oxygen Delivery Method Room Air Intake Visit Reasons: EP RT leg injury not WC Intake Note: Patient here for right leg injury that happened on 10/08 and is still swollen Patient Tobacco Use Status: Current everyday Tobacco user Allergies No Known Allergies Allergy (Verified 11/05/24 08:42) Do you need a note to return to daycare/school/sports/work: No HPI HPI Comments History of Present Illness Details History of Present Illness - The patient is a 33-year-old male pres enting with persistent swelling in his right leg secondary to a traumatic injury. - On October 08, the patient sustained an injury from a large rock falling on his leg, resulting in swelling that has persisted - Although the initial swelling obscured the area, some reduction has since occurred, revealing a discernible lump measuring approximately 7 cm by 9 cm - The patient reports the ability to wal k and does not experience pain at the knee or thigh - He has been unable to secure a follow- up appointment with his primary care physician due to logistical issues. Physical Exam General: Cooperative, healthy appearing, comfortable, no acute distress and well developed Orientation: Patient oriented x3 Limitations: No limitations Head: Normal to inspection Ears: Hearing grossly normal bilaterally Nose: Normal External nose present Face and sinus: Normal facial exam Eyes: Appearance normal, both eyes and all related structures Neck: Normal visual inspection and Yes full ROM Respiratory: Normal respiratory effort and able to speak in complete sentences. Skin: No rashes or lesions noted Neuro: Patient oriented x3 Extremities: fluctuant 7 cm x 9 cm lump on medial upper calf of RLE. Not TTP. Normal to inspection otherwise. 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 Current occupational exposures/hazards: No Cognitive needs: No Hearing needs: No Vision needs: No Review of Systems Const All systems reviewed & are unremarkable except as noted in HPI and below Physical Exam Vital Signs: Last Vital Signs Pulse 68 11/05/24 08:41 BP 122/76 11/05/24 08:41 Pulse Ox 98 11/05/24 08:41 Oxygen Delivery Method Room Air 11/05/24 08:41 Assessment & Plan Assessment & Plan (1) Traumatic hematoma of right lower leg: Code(s): S80.11XA - Contusion of right lower leg, initial encounter Qualifiers: Encounter type: initial encounter Qualified Code(s): S80.11XA - Contusion of right lower leg, initial encounter Plan: The persistent swelling in the right leg, following the described traumatic event, will be further evaluated through an ultrasound to determine the nature and extent of the hematoma, and to ensure there is no damage to adjacent structures. The ability to walk without pain serves as a positive indicator, justifying the choice of conservative management with heat and compression. I have contacted Dr. Marques to arrange for this diagnostic US, ensuring that the patient receives continuity of care and appropriate follow-up. Patient was informed and verbally consented to the use of an ambient scribe for clinic note documentation during this visit. Coding Level of Care Code Est Pt Level 3 (42239) Diagnoses Traumatic hematoma of right lower leg, initial encounter S80.11XA Encounter type: initial encounter
[2024-11-05 08:41] VITALS: BP 122/76; PULSE 68; O2SAT 98
== END 2024-11-05 09:08 | disposition home or self-care (01) ==
PROVIDERS: PCP Family Medicine; Visit Provider Physician Assistant
DX: S80.11XA Contusion of right lower leg, initial encounter (principal)

== ENCOUNTER → 2024-11-05 08:08 | Outpatient (BNVA) | payer OTHER, SELFPAY | PROVIDERS: PCP Family Medicine; Visit Provider Physician Assistant | DX: Z13.89 Encounter for screening for other disorder (principal) ==

== ENCOUNTER 2025-04-14 14:52 | Outpatient (AMB) | payer OTHER, SELFPAY ==
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
[2025-04-14 14:57] VITALS: BP 132/61; PULSE 92; RESP 16; TEMP 37; O2SAT 98; BMI 20.6
== END 2025-04-14 15:52 | disposition home or self-care (01) ==
LOC: HO.HMCFM 14:53
PROVIDERS: PCP Family Medicine; Visit Provider Nurse Practitioner Family
DX: F41.9 Anxiety disorder, unspecified (principal); F32.A Depression, unspecified; Z72.0 Tobacco use; Z00.00 Encounter for general adult medical examination without abnormal findings

== ENCOUNTER → 2025-04-14 14:52 | Outpatient (BNVA) | payer OTHER, SELFPAY | PROVIDERS: PCP Family Medicine; Visit Provider Nurse Practitioner Family | DX: Z00.00 Encounter for general adult medical examination without abnormal findings (principal); F32.A Depression, unspecified; F41.9 Anxiety disorder, unspecified; F17.210 Nicotine dependence, cigarettes, uncomplicated | CPT/HCPCS: 96127 ==

== ENCOUNTER 2025-04-15 07:31 | Outpatient (REF) | payer OTHER, SELFPAY ==
[2025-04-15 11:22] LABS: Appearance Urine Clear; Glucose Urine UA Negative (Negative); PH 5.5 (5.0-9.0); Specific Gravity - Urine 1.015 (1.005-1.025)
[2025-04-15 11:27] LABS: MANUAL DIFF FLAG NO
[2025-04-15 11:39] LABS: Hematocrit 41.4 % (42.0-52.0); Hemoglobin 13.9 g/dl (14.0-18.0); Imm Gran Abs Auto 0.01 X10*3/uL (0.00-0.03); Imm Gran Pct Auto 0.2 % (0.0-0.4); Lymphocytes Absolute Auto 1.6 X10*3/uL (1.2-4.9); Mean Corpuscular HGB Conc 33.6 g/dl (31.0-36.0); Mean Corpuscular Hemoglobin 31.0 pg (27.0-33.0); Mean Corpuscular Volume 92.2 fL (80.0-98.0); NRBC Abs Auto 0.000 X10*3/uL (0.0-0.012); NRBC Pct Auto 0.0 /100WBC (0.0-0.2); Platelet Count 256 X10*3/uL (160-400); Red Blood Count 4.49 X10*6/uL (4.60-5.80); White Blood Count 4.8 X10*3/uL (4.8-10.8)
[2025-04-15 12:07] LABS: Alanine Aminotransferase 19 U/L (0-40); Albumin Level 4.6 g/dL (3.5-5.0); Alkaline Phosphatase 43 U/L (39-117); Anion Gap 11 (12-20); Aspartate Amino Transferase 25 U/L (5-37); Blood Urea Nitrogen 10 mg/dL (9-16); Calcium 9.0 mg/dL (8.4-10.2); Carbon Dioxide 27 mmol/L (22-29); Chloride 108 mmol/L (96-108); Cholesterol 189 mg/dL (<200); Estimated Glomerular Filt Rate > 60; HDL Cholesterol 54 mg/dL (>40); Potassium 4.0 mmol/L (3.3-5.1); Sodium 142 mmol/L (135-145); Total Protein 6.8 g/dL (6.5-8.0); Triglycerides 62 mg/dL (<150)
[2025-04-15 12:26] LABS: Microalbum/Creatinine Ratio Ur 6.5 ug/mg cr (<30)
== END 2025-04-15 07:32 | disposition home or self-care (01) ==
LOC: HO.WFDLDS 07:31
PROVIDERS: Visit Provider Nurse Practitioner Family
DX: Z00.00 Encounter for general adult medical examination without abnormal findings (principal); Z13.21 Encounter for screening for nutritional disorder; Z13.29 Encounter for screening for other suspected endocrine disorder; Z13.6 Encounter for screening for cardiovascular disorders
CPT/HCPCS: 36415; 80053; 80061; 81003; 82043; 82306; 82570; 84443; 85025

== ENCOUNTER 2025-05-07 09:11 | Outpatient (AMB) | payer OTHER, SELFPAY ==
--- NOTE | 2025-05-07 09:17 | MHC.PC.OV ---
Vital Signs 05/07/25 09:22 Height 6 ft Weight 153 lb 4 oz BMI 20.8 BP 108/68 Blood Pressure Location Rt brachial Position Sitting Respiration 16 Pulse 62 Pulse Source Pulse Oximeter Temp 97.9 F Temp Source Temporal Artery Scan Pulse Oximetry (%) 98 Oxygen Delivery Method Room Air Intake Visit Reasons: Dr Cortez in 2 wks anxiety, depression, labs Intake Note: Geoffrey presents in the office today for a 2 week follow up to anxiety, depression and a review of his labs. Allergies No Known Allergies Allergy (Verified 05/07/25 09:20) Medication List - Last Reconciled 05/07/25 by Paolo Marques MD nicotine 1 patch transdermal DAILY 6 weeks Tobacco use date assessed: 05/07/25 Dental Screening Dental Screen Date: 05/07/25 Did you have a dental visit in the last 12 months?: No Did you have a dental problem in the last 6 months where you did not have access to dental care?: No Was dental information given to patient?: Patient has dentist HPI Dr Cortez in 2 wks anxiety, depression, labs HPI Details 34 y/o male presents to f/u anxiety/depression, labs. Labs drawn 04/15/25. Reviewed labs with pt. Mild anemia. Triglycerides 62. TC 189. LDL 123. HDL 54. Vitamin D 55.7. Pt notes he sees a psychiatrist today for his mood. 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 Current occupational exposures/hazards: No Cognitive needs: No Hearing needs: No Vision needs: No Questionnaire Thrive Questionnaire Date Thrive assessed: 04/12/25 I am a: Patient What is your living situation today?: I choose not to answer this question Within the past 12 months, did the food you bought not last and you didn't have the money to get more?: Never true Within the past 12 months, did you worry whether your food would run out before you got money to buy more?: Never true Do you have trouble paying for medicines?: No Do you have trouble getting transportation to medical appointments?: No Do you have trouble paying your heating and electricity bill?: No Do you have trouble taking care of your child, family member or friend?: No Do you have trouble with day-to-day activities such as bathing, preparing meals, shopping, managing finances, etc.?: No Are you currently unemployed and looking for a job?: No Are you interested in more education?: I choose not to answer this question Please select the resources that you would like help with: None Currently or been in a relationship where the following occur: No concerns reported THRIVE Score: 0 JOSE-7 AMB Questionnaire JOSE-7 Date JOSE - 7 assessed: 04/14/25 Source: Developed by Drs. Terry Montes, Sammi Phillips, Pablo Mari and colleagues, with an educational lacey from [employer]. Physical exam (Primary Care) Vital Signs: Last Vital Signs Temp 97.9 F 05/07/25 09:22 Pulse 62 05/07/25 09:22 Resp 16 05/07/25 09:22 BP 108/68 05/07/25 09:22 Pulse Ox 98 05/07/25 09:22 Oxygen Delivery Method Room Air 05/07/25 09:22 BMI result Body Mass Index 20.8 Tobacco/Smoking Status: Tobacco use Status Tobacco use date assessed 05/07/25 05/07/25 09:24 Patient Tobacco Use Status Former Tobacco user 05/07/25 09:24 Tobacco use type Cigarette 05/07/25 09:21 e-Cigarette/Vaping Use Former Use 05/07/25 09:21 Thrive Assessment: Date of Thrive Assessment Date Thrive assessed 04/12/25 05/07/25 09:19 Currently or been in a relationship where the following occur: No concerns reported Coding Level of Care Code Est Pt Level 3 (45851) Diagnoses Anxiety and depression F41.9; F32.A Elevated cholesterol E78.00 Mild anemia D64.9 Assessment & Plan Assessment & Plan (1) Anxiety and depression: Code(s): F41.9 - Anxiety disorder, unspecified; F32.A - Depression, unspecified Category: Medical Plan: Significant anxiety and depression Patient notes that symptoms have improved since discontinuing cannabis Patient already has a therapist and has an appointment with psychiatrist tomorrow. We can follow-up on how he is doing with new psychiatrist and his therapist at his next appointment. No medications were added today as he has his 1st appointment with Psychiatry tomorrow. (2) Elevated cholesterol: Code(s): E78.00 - Pure hypercholesterolemia, unspecified Category: Medical Plan: Consistently elevated LDL cholesterol Start atorvastatin Will recheck lipids prior to his next visit (3) Mild anemia: Code(s): D64.9 - Anemia, unspecified Category: Medical Plan: Will recheck labs prior to next visit Orders: Orders Complete Blood Count Auto Diff Today D64.9 - Anemia, unspecified, Z00.00 - Encounter for general adult medical examination without abnormal findings Lipid Panel Today E78.00 - Pure hypercholesterolemia, unspecified, Z00.00 - Encounter for general adult medical examination without abnormal findings UA CC w/rflx Micro + Cult Today Z00.00 - Encounter for general adult medical examination without abnormal findings Comprehensive [place]. Panel Fast Today E78.00 - Pure hypercholesterolemia, unspecified, Z00.00 - Encounter for general adult medical examination without abnormal findings Hemoglobin A1c Today R73.01 - Impaired fasting glucose TSH reflex Free T4 Today Z00.00 - Encounter for general adult medical examination without abnormal findings Microalbumin, Random (w Creat) Today I10 - Essential (primary) hypertension Medications: New atorvastatin (Lipitor) 10 mg PO BEDTIME 90 tabs 3RF 90 days
[2025-05-07 09:22] VITALS: BP 108/68; PULSE 62; RESP 16; TEMP 36.6; O2SAT 98; BMI 20.8
== END 2025-05-07 10:23 | disposition home or self-care (01) ==
LOC: HO.HMCFM 09:12
PROVIDERS: PCP Family Medicine; Visit Provider Family Medicine
DX: F41.9 Anxiety disorder, unspecified (principal); F32.A Depression, unspecified; E78.00 Pure hypercholesterolemia, unspecified; D64.9 Anemia, unspecified

== ENCOUNTER 2025-06-30 11:41 | Outpatient (AMB) | payer OTHER, SELFPAY ==
--- NOTE | 2025-06-30 11:45 | MHC.PC.OV ---
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: No Allergies No Known Allergies Allergy (Verified 06/30/25 12:16) Medication List - Last Reconciled 06/30/25 by Paolo Marques MD atorvastatin (Lipitor) 10 mg PO BEDTIME 90 days nicotine 1 patch transdermal DAILY 6 weeks Tobacco use date assessed: 06/30/25 Dental Screening Dental Screen Date: 06/30/25 Did you have a dental visit in the last 12 months?: No Did you have a dental problem in the last 6 months where you did not have access to dental care?: No Was dental information given to patient?: Patient has dentist HPI xray hand issues HPI Details 34 y/o male presents with complaints of hand pain, numbness. L hand pain at first metacarpal after hitting hand with a hammer swing. Has swelling, tenderness. 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 Current occupational exposures/hazards: No Cognitive needs: No Hearing needs: No Vision needs: No Questionnaire Thrive Questionnaire Date Thrive assessed: 04/12/25 I am a: Patient What is your living situation today?: I choose not to answer this question Within the past 12 months, did the food you bought not last and you didn't have the money to get more?: Never true Within the past 12 months, did you worry whether your food would run out before you got money to buy more?: Never true Do you have trouble paying for medicines?: No Do you have trouble getting transportation to medical appointments?: No Do you have trouble paying your heating and electricity bill?: No Do you have trouble taking care of your child, family member or friend?: No Do you have trouble with day-to-day activities such as bathing, preparing meals, shopping, managing finances, etc.?: No Are you currently unemployed and looking for a job?: No Are you interested in more education?: I choose not to answer this question Currently or been in a relationship where the following occur: No concerns reported THRIVE Score: 0 JOSE-7 AMB Questionnaire JOSE-7 Date JOSE - 7 assessed: 04/14/25 Source: Developed by Drs. Terry Montes, Sammi Phillips, Pablo Mari and colleagues, with an educational lacey from [employer]. Review of Systems Const Denies chills, Denies fatigue, Denies fever(s), Denies headache(s) and Denies weakness ENT Denies dizziness and Denies headache(s) Card Denies dyspnea Resp Denies cough, Denies dyspnea, Denies wheezing and Denies other (shortness of breath) Musc Denies numbness and Denies tingling Neuro Denies dizziness, Denies headache(s), Denies numbness, Denies tingling and Denies weakness Psych Denies anxiety and Denies depression Endo Denies fatigue Aller/Immun Denies wheezing Physical exam (Primary Care) Vital Signs: Last Vital Signs Temp 98.8 F 06/30/25 12:17 Pulse 65 06/30/25 12:17 Resp 16 06/30/25 12:17 BP 108/60 06/30/25 12:17 Pulse Ox 100 06/30/25 12:17 Oxygen Delivery Method Room Air 06/30/25 12:17 BMI result Body Mass Index 21.8 Tobacco/Smoking Status: Tobacco use Status Tobacco use date assessed 06/30/25 06/30/25 12:19 Patient Tobacco Use Status Former Tobacco user 06/30/25 11:46 Tobacco use type Cigarette 06/30/25 11:46 e-Cigarette/Vaping Use Former Use 06/30/25 11:46 Thrive Assessment: Date of Thrive Assessment Date Thrive assessed 04/12/25 06/30/25 11:46 Currently or been in a relationship where the following occur: No concerns reported Const General: well developed; No acute distress Nutritional Appearance: well nourished Orientation/consciousness: patient oriented x3 HENMT Head: Yes normocephalic and Yes atraumatic Eyes General: appearance normal, both eyes and all related structures Pupils: Equal, round and reactive pupils present EOM: EOMs intact bilaterally Resp Effort & Inspection: normal respiratory effort Neuro General: patient oriented x3 and gait normal Cranial nerves: Yes Equal, round and reactive pupils present Psych Affect: normal affect Coding Level of Care Code Est Pt Level 3 (64605) Diagnoses Hand pain M79.643 Assessment & Plan Assessment & Plan (1) Hand pain: Code(s): M79.643 - Pain in unspecified hand Category: Medical Plan: Left hand pain at 2nd metatarsal after hitting hand with stray hammer swing about 3 mos ago. Now has some swelling and tenderness. Also has some decreased sensation at distal fingertips of 2nd finger Will get x-ray He will follow-up in 1-2 weeks to review x-ray and determine next steps. Plan Had also wanted to follow-up on patient's lipids, fasting blood sugar and mild anemia. He has not gotten his blood drawn yet but will do so when [place] [facility] [place] Orders: Orders XR hand LT min 3V Today M79.643 - Pain in unspecified hand
[2025-06-30 12:17] VITALS: BP 108/60; PULSE 65; RESP 16; TEMP 37.1; O2SAT 100; BMI 21.8
== END 2025-06-30 12:50 | disposition home or self-care (01) ==
LOC: HO.HMCFM 11:42
PROVIDERS: PCP Family Medicine; Visit Provider Family Medicine
DX: M79.643 Pain in unspecified hand (principal)

== ENCOUNTER 2025-07-01 08:34 | Outpatient (REF) | payer OTHER, SELFPAY ==
--- NOTE | ~2025-07-01 | XR_ITS ---
EXAMINATION: XR HAND 3 OR MORE VIEWS LEFT HISTORY: M79.643 - Pain in unspecified hand COMPARISON: There are no prior studies available for comparison. FINDINGS: Three views of the left hand are submitted. Osseous mineralization is normal. There is a moderately displaced transverse fracture of the midshaft of the 2nd metacarpal. There is volar displacement of the distal fracture fragment. The joint spaces are preserved. There is soft tissue swelling of the thenar eminence. XR/XR hand LT min 3V IMPRESSION: Moderately displaced transverse fracture of the midshaft of the 2nd metacarpal. Electronically signed by: Terry Almanza MD 07/01/2025 09:17 AM [facility]
[2025-07-01 08:54] LABS: MANUAL DIFF FLAG NO
[2025-07-01 09:06] LABS: Hematocrit 43.1 % (42.0-52.0); Hemoglobin 14.5 g/dl (14.0-18.0); Imm Gran Abs Auto 0.01 X10*3/uL (0.00-0.03); Imm Gran Pct Auto 0.2 % (0.0-0.4); Lymphocytes Absolute Auto 1.8 X10*3/uL (1.2-4.9); Mean Corpuscular HGB Conc 33.6 g/dl (31.0-36.0); Mean Corpuscular Hemoglobin 30.7 pg (27.0-33.0); Mean Corpuscular Volume 91.1 fL (80.0-98.0); NRBC Abs Auto 0.000 X10*3/uL (0.0-0.012); NRBC Pct Auto 0.0 /100WBC (0.0-0.2); Platelet Count 265 X10*3/uL (160-400); Red Blood Count 4.73 X10*6/uL (4.60-5.80); White Blood Count 4.9 X10*3/uL (4.8-10.8)
[2025-07-01 09:43] LABS: Alanine Aminotransferase 41 U/L (0-40); Albumin Level 4.7 g/dL (3.5-5.0); Alkaline Phosphatase 53 U/L (39-117); Anion Gap 11 (12-20); Aspartate Amino Transferase 32 U/L (5-37); Blood Urea Nitrogen 10 mg/dL (9-16); Calcium 9.4 mg/dL (8.4-10.2); Carbon Dioxide 28 mmol/L (22-29); Chloride 106 mmol/L (96-108); Cholesterol 164 mg/dL (<200); Estimated Glomerular Filt Rate > 60; HDL Cholesterol 61 mg/dL (>40); Potassium 4.8 mmol/L (3.3-5.1); Sodium 140 mmol/L (135-145); Total Protein 6.8 g/dL (6.5-8.0); Triglycerides 49 mg/dL (<150)
[2025-07-01 10:11] LABS: Appearance Urine Clear; Glucose Urine UA Negative (Negative); PH 6.0 (5.0-9.0); Specific Gravity - Urine <= 1.005 (1.005-1.025)
== END 2025-07-01 08:35 | disposition home or self-care (01) ==
LOC: HO.LAB 08:34
PROVIDERS: PCP Family Medicine; Visit Provider Family Medicine
DX: Z00.00 Encounter for general adult medical examination without abnormal findings (principal); E78.00 Pure hypercholesterolemia, unspecified; R73.01 Impaired fasting glucose; D64.9 Anemia, unspecified; I10 Essential (primary) hypertension; M79.643 Pain in unspecified hand
CPT/HCPCS: 36415; 73130; 80053; 80061; 81003; 82043; 82570; 83036; 84443; 85025

== ENCOUNTER → 2025-07-01 08:56 | Outpatient (BNV) | payer OTHER, SELFPAY | PROVIDERS: PCP Family Medicine; Visit Provider Radiology Diagnostic Radiology | DX: S62.321A Displaced fracture of shaft of second metacarpal bone, left hand, initial encounter for closed fracture (principal) | CPT/HCPCS: 73130 ==

== ENCOUNTER 2025-07-08 13:38 | Outpatient (AMB) | payer OTHER, SELFPAY ==
--- NOTE | 2025-07-08 13:50 | MHC.PC.OV ---
Vital Signs 07/08/25 13:53 Height 6 ft Weight 162 lb BMI 22.0 BP 108/68 Blood Pressure Location Rt brachial Position Sitting Respiration 16 Pulse 66 Pulse Source Pulse Oximeter Temp 98.3 F Temp Source Temporal Artery Scan Pulse Oximetry (%) 98 Oxygen Delivery Method Room Air Intake Visit Reasons: f/u hand pain/numbness Intake Note: Geoffrey presents in the office today to follow up to hand pain and numbness. Patient completed x-rays. Fixture Maker Required: No Allergies No Known Allergies Allergy (Verified 07/08/25 13:52) Medication List - Last Reconciled 07/08/25 by Paolo Marques MD atorvastatin (Lipitor) 10 mg PO BEDTIME 90 days nicotine 1 patch transdermal DAILY 6 weeks Tobacco use date assessed: 07/08/25 Dental Screening Dental Screen Date: 07/08/25 Did you have a dental visit in the last 12 months?: Yes Did you have a dental problem in the last 6 months where you did not have access to dental care?: No Was dental information given to patient?: Patient has dentist HPI f/u hand pain/numbness HPI Details Patient returns for follow-up of left hand pain after injury with a hammer. Also following up for hyperlipidemia and elevated blood sugars. X-ray shows fracture at left 2nd metacarpal Had referred him [place] [facility] but he wants to see Dr. Cody at [facility] Patient is tolerating atorvastatin for elevated LDL cholesterol LDL now in normal range Fasting blood sugar again high at 109 but A1c is 5.4% Lastly, he had mild anemia at prior measurement. H&H both in range now No other complaints. 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 Current occupational exposures/hazards: No Cognitive needs: No Hearing needs: No Vision needs: No Questionnaire Thrive Questionnaire Date Thrive assessed: 04/12/25 I am a: Patient What is your living situation today?: I choose not to answer this question Within the past 12 months, did the food you bought not last and you didn't have the money to get more?: Never true Within the past 12 months, did you worry whether your food would run out before you got money to buy more?: Never true Do you have trouble paying for medicines?: No Do you have trouble getting transportation to medical appointments?: No Do you have trouble paying your heating and electricity bill?: No Do you have trouble taking care of your child, family member or friend?: No Do you have trouble with day-to-day activities such as bathing, preparing meals, shopping, managing finances, etc.?: No Are you currently unemployed and looking for a job?: No Are you interested in more education?: I choose not to answer this question Currently or been in a relationship where the following occur: No concerns reported THRIVE Score: 0 JOSE-7 AMB Questionnaire JOSE-7 Date JOSE - 7 assessed: 04/14/25 Source: Developed by Drs. Terry Montes, Sammi Phillips, Pablo Mari and colleagues, with an educational lacey from [employer] Review of Systems Const Denies chills, Denies fatigue, Denies fever(s), Denies headache(s) and Denies weakness ENT Denies dizziness and Denies headache(s) Card Denies chest pain, Denies lightheadedness, Denies dyspnea and Denies other (Palpitations) Resp Denies cough, Denies dyspnea, Denies wheezing and Denies other ( shortness of breath) Musc Details: Left hand pain, swelling and deformity. Not worsened but not improved. Denies numbness and Denies tingling Neuro Denies dizziness, Denies headache(s), Denies numbness, Denies tingling, Denies paresthesias and Denies weakness Psych Denies anxiety and Denies depression Endo Denies fatigue Aller/Immun Denies wheezing Physical exam (Primary Care) Vital Signs: Last Vital Signs Temp 98.3 F 07/08/25 13:53 Pulse 66 07/08/25 13:53 Resp 16 07/08/25 13:53 BP 108/68 07/08/25 13:53 Pulse Ox 98 07/08/25 13:53 Oxygen Delivery Method Room Air 07/08/25 13:53 BMI result Body Mass Index 22.0 Tobacco/Smoking Status: Tobacco use Status Tobacco use date assessed 07/08/25 07/08/25 13:55 Patient Tobacco Use Status Former Tobacco user 07/08/25 13:53 Tobacco use type Cigarette 07/08/25 13:53 e-Cigarette/Vaping Use Former Use 07/08/25 13:53 Thrive Assessment: Date of Thrive Assessment Date Thrive assessed 04/12/25 07/08/25 13:51 Currently or been in a relationship where the following occur: No concerns reported Const General: no acute distress and well developed Nutritional Appearance: well nourished Orientation/consciousness: patient oriented x3 HENMT Head: Yes normocephalic and Yes atraumatic Eyes General: appearance normal, both eyes and all related structures Pupils: Equal, round and reactive pupils present EOM: EOMs intact bilaterally Resp Effort & Inspection: normal respiratory effort Auscultation: clear to auscultation bilaterally Cardio Rate: regular rate Rhythm: regular rhythm Heart sounds: S1 normal heart sound present, S2 normal heart sound present, no gallops, no murmurs and no rubs Neuro General: patient oriented x3 and gait normal Cranial nerves: Yes Equal, round and reactive pupils present Extrem Other: Shortening of left index finger and deviation. Psych Affect: normal affect Coding Level of Care Code Tele Est Pt Level 4 (41657) Diagnoses Fracture of left hand S62.92XA Elevated cholesterol E78.00 Elevated fasting glucose R73.01 Mild anemia D64.9 Assessment & Plan Assessment & Plan (1) Fracture of left hand: Code(s): S62.92XA - Unspecified fracture of left hand, initial encounter for closed fracture Category: Medical Plan: X-ray shows moderately displaced transverse fracture of the midshaft of the 2nd metacarpal. Had made referral to [facility] [place] but patient would like a referral to Dr. Cody at [facility]. Referred (2) Elevated cholesterol: Code(s): E78.00 - Pure hypercholesterolemia, unspecified Category: Medical Plan: LDL cholesterol now controlled with atorvastatin 10 mg daily Continue current medication (3) Elevated fasting glucose: Code(s): R73.01 - Impaired fasting glucose Category: Medical Plan: Still has elevated fasting blood sugars. A1c 5.4% Work at a diet lower in sugars and starches (4) Mild anemia: Code(s): D64.9 - Anemia, unspecified Category: Medical Plan: This has resolved Orders: Referrals Hand Surgery Referral S62.92XA - Unspecified fracture of left hand, initial encounter for closed fracture Medications: Refilled atorvastatin (Lipitor) 10 mg PO BEDTIME 90 tabs 3RF 90 days
[2025-07-08 13:53] VITALS: BP 108/68; PULSE 66; RESP 16; TEMP 36.8; O2SAT 98; BMI 22.0
== END 2025-07-08 14:04 | disposition home or self-care (01) ==
LOC: HO.HMCFM 13:39
PROVIDERS: PCP Family Medicine; Visit Provider Family Medicine
DX: S62.321A Displaced fracture of shaft of second metacarpal bone, left hand, initial encounter for closed fracture (principal); E78.00 Pure hypercholesterolemia, unspecified; R73.01 Impaired fasting glucose; Z86.2 Personal history of diseases of the blood and blood-forming organs and certain disorders involving the immune mechanism